=== PATIENT | male | born 1945 | race Hispanic/Latino ===

== ENCOUNTER 2017-05-18 17:25 | Emergency (ER) | payer OTHER ==
[~2017-05-18 17:25] MED LIST: ATOR40TA71 PO; CLIN300C9 PO; DIGO125T87 PO; DOXY100C2 PO; GLIM4TAB3 PO; LISI2.5T2 PO; METO50 PO; RIVA20TA PO; SERT25TA5 PO
[2017-05-18] MEDS ORDERED: AMOXICILLIN/POTASSIUM CLAV 875-125 TABLET PO ONE (19:11)
[2017-05-18] MEDS ORDERED: TETANUS/DIPHTHERIA TOXOID [ADULT] 0.5 ML VIAL IM ONE (19:12)
== END 2017-05-18 20:13 | disposition home or self-care (01) ==
LOC: EDH 17:25
DX: S91.155A Open bite of left lesser toe(s) without damage to nail, initial encounter (principal); E11.9 Type 2 diabetes mellitus without complications; I10 Essential (primary) hypertension; Z72.0 Tobacco use; W54.0XXA Bitten by dog, initial encounter; Y93.89 Activity, other specified; Y92.89 Other specified places as the place of occurrence of the external cause; Y99.8 Other external cause status
CPT/HCPCS: 73630; 90471; 90714

== ENCOUNTER 2018-06-30 20:34 | Inpatient (IN) | payer MEDICARE, OTHER | END 2018-07-07 15:24 | disposition home or self-care (01) | LOC: EDH 20:34 → EDHIP 23:00 → 3AH 23:23 | DX: K80.00 Calculus of gallbladder with acute cholecystitis without obstruction (principal); N39.0 Urinary tract infection, site not specified; K56.41 Fecal impaction; K42.9 Umbilical hernia without obstruction or gangrene; E11.9 Type 2 diabetes mellitus without complications; I10 Essential (primary) hypertension ==